=== PATIENT | female | born 1940 | race Caucasian/White ===

== ENCOUNTER 2022-11-21 15:48 | Emergency (ER) | payer MEDICARE, SELFPAY ==
[2022-11-21] VITALS (10 sets, daily range): BP systolic 107–165; BP diastolic 56–89; PULSE 69; RESP 17; TEMP 36.6; O2SAT 95–98
--- NOTE | ~2022-11-21 | XR_ITS ---
EXAMINATION: XR G tube replacement w image DATE: 11/21/2022 16:26 INDICATION: Gastrostomy tube replacement. TECHNIQUE: A supine view of the abdomen on 2 radiographs was obtained. COMPARISON: None. FINDINGS: There are no dilated loops of bowel. There is a gastrostomy tube in expected position in th e body of the stomach. There is contrast in the stomach and duodenum. No extraluminal contrast. IMPRESSION: 1. Gastrostomy tube in expected position. Reviewed, dictated and finalized at location A.
--- NOTE | 2022-11-21 16:48 | ED.GENADULT ---
HPI - General Adult General Chief complaint: Unspecified Stated complaint: pulled out g tube/ bed bound Time Seen by Provider: 11/21/22 15:56 History of Present Illness HPI narrative: Patient is an 82-year-old female who presents ER after having dislodged her G-tube. 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 It was placed at [facility] 2 months ago. Patient cannot provide history that was obtained from family at bedside. Related Data Allergies Allergy/AdvReac Type Severity Reaction Status Date / Time codeine Allergy Unknown Verified 10/17/22 23:30 Review of Systems Review of Systems: ROS unobtainable: Yes unobtainable due to medical condition PMFSH Past Medical History Medical History (Updated 11/21/22 @ 16:58 by Derrick Ventura MD) Basal ganglia hemorrhage Chronic kidney disease Diabetes Hyperkalemia Hypertension Surgical History Surgical History (Updated 11/21/22 @ 16:53 by Derrick Ventura MD) PEG (percutaneous endoscopic gastrostomy) status Social History Social History Smoking status: Unknown if ever smoked Exam Narrative: GENERAL: Chronically ill-appearing, well-nourished, and in no acute distress. HEAD: Normocephalic, atraumatic. ENT: Mucous membranes moist. CHEST: Clear to auscultation. No respiratory distress. HEART: Regular rate and rhythm. Normal peripheral pulses. ABDOMEN: Soft, nontender, nondistended. PEG site left upper quadrant was clotted blood. SKIN: Warm, dry, no rash. Course Vital Signs Vital signs: Vital Signs Temperature 97.8 F 11/21/22 15:51 Pulse Rate 69 11/21/22 15:51 Respiratory Rate 17 11/21/22 15:51 Blood Pressure 107/89 11/21/22 15:51 Pulse Oximetry 97 11/21/22 15:51 Temperature 97.8 F 11/21/22 15:51 Pulse Rate 69 11/21/22 15:51 Respiratory Rate 17 11/21/22 15:51 Blood Pressure 107/89 11/21/22 15:51 Pulse Oximetry 97 11/21/22 15:51 Procedures Feeding Tube Replacement Feeding Tube #1: Feeding Tube Placement Date: 11/21/22 Feeding Tube Placement Time: 16:20 Type of Tube: gastrostomy Insertion Site Prior to Procedure: clean Tube Used for Reinsertion: other (Kangaroo) Danish Tube Size (F): 16 Balloon size (mL): 5 Verification of Placement: KUB and gastrografin injection Tube Secured by: tape/dressing Patient Tolerated Procedure: well Medical Decision Making Vital Signs Vital Signs: Vital Signs Temperature 97.8 F 11/21/22 15:51 Pulse Rate 69 11/21/22 15:51 Respiratory Rate 17 11/21/22 15:51 Blood Pressure 107/89 11/21/22 15:51 Pulse Oximetry 97 11/21/22 15:51 Temperature 97.8 F 11/21/22 15:51 Pulse Rate 69 11/21/22 15:51 Respiratory Rate 17 11/21/22 15:51 Blood Pressure 107/89 11/21/22 15:51 Pulse Oximetry 97 11/21/22 15:51 Imaging Data Radiologist's impression: ITS Impressions Imaging G-Tube Change 11/21/22 16:27 IMPRESSION: 1. Gastrostomy tube in expected position. Discharge Plan Discharge Clinical Impression: Dislodged gastrostomy tube Patient Disposition: [facility] Living Condition: Stable Instructions: How to Use and Care for Your PEG Tube (ED) Additional Instructions: Return to the ER if you have recurrent dislodgment of your feeding tube. Additionally return if there is site infection or abnormal drainage. Prescriptions: No Action carvedilol [Coreg] 12.5 mg Tablet 25 mg feeding tube Q12HR Qty: 60 0RF polyethylene glycol 3350 [Miralax] 17 gram Powder In Packet 17 g feeding tube QAM PRN (Reason: constipation- 1st line) Qty: 170 0RF sennosides-docusate sodium [Senokot-S] 8.6-50 mg Tablet 2 tab feeding tube DAILY PRN (Reason: constipation- 2nd line) Qty: 30 0RF hydralazine 25 mg Tablet 25 mg PO QID PRN (Reason: Hypertension) Qty: 120 0RF
== END 2022-11-21 17:48 ==
PROVIDERS: Emergency Provider Emergency Medicine; PCP Internal Medicine
DX: Z43.1 Encounter for attention to gastrostomy (principal); I12.9 Hypertensive chronic kidney disease with stage 1 through stage 4 chronic kidney disease, or unspecified chronic kidney disease; N18.9 Chronic kidney disease, unspecified; E11.22 Type 2 diabetes mellitus with diabetic chronic kidney disease; Z86.73 Personal history of transient ischemic attack (TIA), and cerebral infarction without residual deficits; Z79.4 Long term (current) use of insulin
CPT/HCPCS: 49450; 99284